=== PATIENT | male | born 1960 | race Caucasian/White ===

== ENCOUNTER 2016-04-28 14:49 | Emergency (ER) | payer OTHER ==
[2016-04-28] MEDS ORDERED: methylPREDNISolone SOD SUCCI 125 MG/2 ML VIAL IV STA (15:12)
[2016-04-28] MEDS ORDERED: RX INFO: IV CONTRAST WAS GIVEN 1 EACH MISC MISCELLANE PRN (15:12)
[2016-04-28] MEDS ORDERED: diphenhydrAMINE 50 MG/ML 1 ML VIAL IVP STA (15:12)
[2016-04-28] MEDS ORDERED: FAMOTIDINE 20 MG/2 ML VIAL IV STA (15:12)
[2016-04-28] MEDS ORDERED: HYDROmorphone 1 MG/ML 1 ML SYRINGE IVP STA ×2 (15:16→16:52)
[2016-04-28] MEDS ORDERED: ONDANSETRON 4 MG/2 ML VIAL IVP STA (15:16)
--- NOTE | 2016-04-28 15:19 | ED ---
General Adult HPI - General Chief complaint: Back Pain/Injury Stated complaint: Chest and Back Pain Time Seen by Provider: 04/28/16 15:00 Source: patient, RN notes reviewed Mode of arrival: wheelchair Limitations: no limitations - History of Present Illness Initial comments: This is a 56-year-old male who presents emergency Department with a past medical history significant for thoracic aortic dissection. Patient states she' s had a repair of his aorta but at another time after his initial repair he had another dissection according to him. Patient states today he comes in the emergency department because he fell when he slipped on the ice and now he complains of back pain and reproducible chest pain. and chest pain. Patient states the pain is been constant since yesterday and he decided finally to come get evaluated. Patient states hurts to breathe when he takes a deep breath but is not short of breath. Patient denies any fever chills per patient denies any lower upper extremity pain. Patient denies any neck pain patient denies any head trauma. Patient denies being lightheaded dizzy or having near syncopal episodes - Related Data Home Medications Medication Instructions Recorded Confirmed Lisinopril [Zestril] 40 mg PO BID 08/12/14 04/28/16 Aspirin/Acetaminophen/Caffeine 1 tab PO DAILY 01/28/16 04/28/16 [Excedrin Extra Strength Caplet] Carvedilol 25 mg PO BID 01/28/16 04/28/16 Ibuprofen [Motrin] 800 mg PO BID PRN 01/28/16 04/28/16 Atorvastatin Calcium [Lipitor] 10 mg PO HS 04/28/16 04/28/16 traMADol HCl [Ultram] 50 mg PO BID PRN 04/28/16 04/28/16 Allergies Allergy/AdvReac Type Severity Reaction Status Date / Time venom-honey bee Allergy Anaphylaxis Verified 04/28/16 16:36 [bee venom (honey bee)] Iodinated Contrast Media - AdvReac Nausea & Verified 04/28/16 16:36 Oral and Vomiting & [Iodinated Contrast Media - Fainting IV Dye] iodine AdvReac NAUSEA, Verified 04/28/16 16:36 VOMITING, & FAINTING Review of Systems ROS Statement: Those systems with pertinent positive or pertinent negative responses have been documented in the HPI. ROS Other: All systems not noted in ROS Statement are negative. Past Medical History Past Medical History: Chest Pain / Angina, Hypertension Additional Past Medical History / Comment(s): chonic back pain, AAA. pt has not worked since 2005 d/t lower back injury. Pt fell 2 stories off a roof in 2005, cause injury to according to him is "entire Aorta". admitted to [facility] 08/12 and 09/08 with complaints of chest pain. History of Any Multi-Drug Resistant Organisms: None Reported Past Surgical History: Appendectomy, Back Surgery, Heart Catheterization, Hernia Repair, Tonsillectomy Additional Past Surgical History / Comment(s): AAA dissection 2005, cath 2012, vasectomy Past Anesthesia/Blood Transfusion Reactions: No Reported Reaction Past Psychological History: Anxiety, Depression Smoking Status: Former smoker Past Alcohol Use History: None Reported Past Drug Use History: Marijuana Additional Drug Use History / Comment(s): medical marijuana card - Past Family History Mother Family Medical History: Diabetes Mellitus Father History Unknown: Yes Family Medical History: No Reported History Sister(s) History Unknown: Yes Family Medical History: No Reported History General Exam - General Exam Comments Initial Comments: GENERAL: Patient is well-developed and well-nourished. Patient is nontoxic and well- hydrated and is in mild distress. ENT: Neck is soft and supple. No significant lymphadenopathy is noted. Oropharynx is clear. Moist mucous membranes. Neck has full range of motion without eliciting any pain. EYES: The sclera were anicteric and conjunctiva were pink and moist. Extraocular movements were intact and pupils were equal round and reactive to light. Eyelids were unremarkable. PULMONARY: Unlabored respirations. Good breath sounds bilaterally. No audible rales rhonchi or wheezing was noted. CARDIOVASCULAR: There is a regular rate and rhythm without any murmurs gallops or rubs. ABDOMEN: Soft and nontender with normal bowel sounds. No palpable organomegaly was noted. There is no palpable pulsatile mass. SKIN: Skin is clear with no lesions or rashes and otherwise unremarkable. NEUROLOGIC: Patient is alert and oriented x3. Cranial nerves II through XII are grossly intact. Motor and sensory are also intact. Normal speech, volume and content. Symmetrical smile. MUSCULOSKELETAL: Normal extremities with adequate strength and full range of motion. No lower extremity swelling or edema. No calf tenderness. Patient has tenderness just medial to the right scapula. LYMPHATICS: No significant lymphadenopathy is noted PSYCHIATRIC: Normal psychiatric evaluation. Normal interpersonal interactions appears functionally intact in deals appropriately with others. No signs of depression. No signs of anxiety. Limitations: no limitations Course Vital Signs 04/28/16 04/28/16 14:55 16:14 Temperature 97.2 F L Pulse Rate 60 52 L Respiratory 16 18 Rate Blood Pressure 138/79 169/81 O2 Sat by Pulse 99 98 Oximetry Medical Decision Making - Medical Decision Making EKG shows sinus bradycardia 58 bpm SC interval is 222 QRS is 88 QT interval 394 QTC is 386. Patient's EKG shows no ST segment elevation or depression there is an inverted T-wave in V6 and flattening in 1 and aVL. Computed tomography scan of the aorta showed no acute findings. There was also no findings of any traumatic injury noted. - Lab Data Result diagrams: 04/28/16 15:10 04/28/16 15:10 Lab Results 04/28/16 04/28/16 04/28/16 Range/Units 15:10 15:10 15:10 WBC 4.6 (3.8-10.6) k/uL RBC 4.86 (4.30-5.90) m/uL Hgb 15.2 (13.0-17.5) gm/dL Hct 44.5 (39.0-53.0) % MCV 91.5 (80.0-100.0) fL MCH 31.2 (25.0-35.0) pg MCHC 34.1 (31.0-37.0) g/dL RDW 13.3 (11.5-15.5) % Plt Count 190 (150-450) k/uL Neutrophils % 41 % Lymphocytes % 46 % Monocytes % 5 % Eosinophils % 5 % Basophils % 1 % Neutrophils # 1.9 (1.3-7.7) k/uL Lymphocytes # 2.1 (1.0-4.8) k/uL Monocytes # 0.2 (0-1.0) k/uL Eosinophils # 0.2 (0-0.7) k/uL Basophils # 0.1 (0-0.2) k/uL PT (9.0-12.0) sec INR (<1.1) APTT (22.0-30.0) sec Sodium 143 (137-145) mmol/L Potassium 3.9 (3.5-5.1) mmol/L Chloride 109 H (98-107) mmol/L Carbon Dioxide 23 (22-30) mmol/L Anion Gap 11 mmol/L BUN 10 (9-20) mg/dL Creatinine 0.80 (0.66-1.25) mg/dL Est GFR (MDRD) Af Amer >60 (>60 ml/min/1.73 sqM) Est GFR (MDRD) Non-Af >60 (>60 ml/min/1.73 sqM) Glucose 109 H (74-99) mg/dL Calcium 9.6 (8.4-10.2) mg/dL Magnesium 2.1 (1.6-2.3) mg/dL Total Bilirubin 1.1 (0.2-1.3) mg/dL AST 17 (17-59) U/L ALT 29 (21-72) U/L Alkaline Phosphatase 46 (38-126) U/L Total Creatine Kinase 125 (55-170) U/L CK-MB (CK-2) 0.6 (0.0-2.4) ng/mL CK-MB (CK-2) Rel Index 0.5 Troponin I 0.015 (0.000-0.034) ng/mL Total Protein 7.3 (6.3-8.2) g/dL Albumin 4.4 (3.5-5.0) g/dL 04/28/16 Range/Units 15:10 WBC (3.8-10.6) k/uL RBC (4.30-5.90) m/uL Hgb (13.0-17.5) gm/dL Hct (39.0-53.0) % MCV (80.0-100.0) fL MCH (25.0-35.0) pg MCHC (31.0-37.0) g/dL RDW (11.5-15.5) % Plt Count (150-450) k/uL Neutrophils % % Lymphocytes % % Monocytes % % Eosinophils % % Basophils % % Neutrophils # (1.3-7.7) k/uL Lymphocytes # (1.0-4.8) k/uL Monocytes # (0-1.0) k/uL Eosinophils # (0-0.7) k/uL Basophils # (0-0.2) k/uL PT 11.1 (9.0-12.0) sec INR 1.1 (<1.1) APTT 24.3 (22.0-30.0) sec Sodium (137-145) mmol/L Potassium (3.5-5.1) mmol/L Chloride (98-107) mmol/L Carbon Dioxide (22-30) mmol/L Anion Gap mmol/L BUN (9-20) mg/dL Creatinine (0.66-1.25) mg/dL Est GFR (MDRD) Af Amer (>60 ml/min/1.73 sqM) Est GFR (MDRD) Non-Af (>60 ml/min/1.73 sqM) Glucose (74-99) mg/dL Calcium (8.4-10.2) mg/dL Magnesium (1.6-2.3) mg/dL Total Bilirubin (0.2-1.3) mg/dL AST (17-59) U/L ALT (21-72) U/L Alkaline Phosphatase (38-126) U/L Total Creatine Kinase (55-170) U/L CK-MB (CK-2) (0.0-2.4) ng/mL CK-MB (CK-2) Rel Index Troponin I (0.000-0.034) ng/mL Total Protein (6.3-8.2) g/dL Albumin (3.5-5.0) g/dL Disposition Clinical Impression: Back contusion Disposition: HOME SELF-CARE Condition: Good Instructions: Back Pain (ED) Time of Disposition: 16:51
[2016-04-28 15:40] LABS: Basophils # (A) 0.1 k/uL (0-0.2); Basophils % (A) 1 %; CHCM 35.1; Eosinophils # (A) 0.2 k/uL (0-0.7); Eosinophils % (A) 5 %; HCT 44.5 % (39.0-53.0); HGB 15.2 gm/dL (13.0-17.5); Luc # (Auto) 0.12; Luc % (Auto) 3; Lymphocytes # (A) 2.1 k/uL (1.0-4.8); Lymphocytes % (A) 46 %; MCH 31.2 pg (25.0-35.0); MCHC 34.1 g/dL (31.0-37.0); MCV 91.5 fL (80.0-100.0); Mean Platelet Volume 7.6; Monocytes # (A) 0.2 k/uL (0-1.0); Monocytes % (A) 5 %; Neutrophils # (A) 1.9 k/uL (1.3-7.7); Neutrophils % (A) 41 %; RBC 4.86 m/uL (4.30-5.90); RDW 13.3 % (11.5-15.5); WBC 4.6 k/uL (3.8-10.6); WBC (Perox) 4.65
[2016-04-28 15:51] LABS: INR 1.1 (<1.1); Partial Thromboplastin Time 24.3 sec (22.0-30.0); Prothrombin Time 11.1 sec (9.0-12.0)
[2016-04-28 15:55] LABS: ALT 29 U/L (21-72); AST 17 U/L (17-59); Alkaline Phosphatase 46 U/L (38-126); Anion Gap 11 mmol/L; Blood Urea Nitrogen 10 mg/dL (9-20); Calcium 9.6 mg/dL (8.4-10.2); Carbon Dioxide 23 mmol/L (22-30); Chloride 109 mmol/L (98-107); Glucose 109 mg/dL (74-99); Magnesium 2.1 mg/dL (1.6-2.3); Non-African American GFR(MDRD) >60 (>60 ml/min/1.73 sqM); Potassium 3.9 mmol/L (3.5-5.1); Sodium 143 mmol/L (137-145); Total Bilirubin 1.1 mg/dL (0.2-1.3); Total Protein 7.3 g/dL (6.3-8.2)
[2016-04-28 16:15] VITALS: RESP 18
[2016-04-28 16:15] LABS: Creatine Kinase MB 0.6 ng/mL (0.0-2.4); Troponin I 0.015 ng/mL (0.000-0.034)
--- NOTE | 2016-04-28 16:17 | XR ---
EXAMINATION TYPE: XR chest 2V DATE OF EXAM: 04/28/2016 4:13 PM COMPARISON: 02/24/2015 INDICATION: Chest pain TECHNIQUE: Single frontal view of the chest is obtained. FINDINGS: The heart size is normal. The pulmonary vasculature is normal. The lungs are clear. Sternotomy wires are present from previous CABG. Surgical clips over the right upper chest. IMPRESSION: 1. No acute pulmonary process.
--- NOTE | 2016-04-28 16:38 | CT ---
EXAMINATION TYPE: CT angio thoracic/abd aorta DATE OF EXAM: 04/28/2016 4:17 PM COMPARISON: 01/28/2016. HISTORY: Pt states of chest pain and back pain after fall injury. HX of AAA. CT DLP: 1447.7 mGycm Automated exposure control for dose reduction was used. CONTRAST: CTA scan of the thorax is performed without and with IV Contrast, patient injected with 100 mL of Omn ipaque 350, aortic dissection protocol. 3-D reconstructed imaging through the entire thoracic abdomin al aorta and the iliac vessels is performed separately by the technologist on the [employer] computer. FINDINGS: LUNGS: The ascending thoracic aorta at the level of the main pulmonary artery measures 2.9 cm. The main pulm onary artery the bifurcation is 2.4 cm. Beginning at the superior lateral ascending aorta at the level of the aortic arch there is a dissecti on with a flap. This extends through the aortic arch and the descending thoracic aorta extending to t he abdominal aorta. The abdominal aorta feeds the superior mesenteric artery celiac axis and right ma in renal artery. The left main renal artery appears to have some retrograde flow from the left common iliac portion of the dissection to the renal artery. There is delayed arterial flow into the right k idney compared to the left. At the level of the estrada of the diaphragm there does not appear to be rajinder w within the left aspect of the dissection. This is what suggests that there is retrograde flow withi n the aorta dissection. The right common iliac artery is no dissection. The dissection appears to ter minate within the mid left common iliac artery. A report was called to the emergency room physician ilya Davidson by telephone 1630 hours. COMPARISON: 01/28/2016. The dissection was present previously. The loss of contrast at the level of t he estrada the diaphragm on the left aspect of the dissection flap may be an interval change. However, t he contrast asymmetry into the left renal artery versus the right is a stable finding. Portion of the thyroid visualized is normal. Axillary regions are unremarkable. No enlarged mediastin al adenopathy is evident. There is a calcification in the posterior right midlung. Series 5 image 29. Some compressive atelectasis within the dependent portions of the lungs bilaterally. Facet degenerative changes are in the lower lumbar spine. No displaced fractures are evident. No pulm onary contusion is evident. Soft tissues appear normal CT ABDOMEN: Liver and spleen appear unremarkable without masses or cysts. The gallbladder is unremark able. Pancreas is normal. Adrenal glands are unremarkable. The asymmetry of contrast within the kidne ys is again noted. No masses cysts or hydronephrosis is evident. Inferior vena cava is unremarkable. There is some minimal fusiform prominence of the distal abdominal aorta with the greatest AP dimensio n of 3.0 cm. Loops of bowel without contrast are unremarkable. Urinary bladder is normal. Prostate ca lcification is present. IMPRESSION: 1. STABLE DISSECTION FROM THE AORTIC ARCH TO THE LEFT COMMON ILIAC ARTERY. THERE IS LIKELY RETROGRADE FLOW WITHIN THE LEFT ASPECT OF THE ANEURYSM FLAP ACCOUNTING FOR THE DELAYED BLOOD AND CONTRAST FLOW INTO THE LEFT KIDNEY. 2. NO ACUTE POSTTRAUMATIC CHANGE IDENTIFIED WITHIN THE REGION OF THE BACK TO ACCOUNT FOR THE PATIENT' S PAIN
[2016-04-28 17:05] VITALS: BP 157/89; PULSE 63; TEMP 97.8
== END 2016-04-28 17:05 | disposition home or self-care (01) ==
LOC: EC 14:49
DX: S20.221A Contusion of right back wall of thorax, initial encounter (principal); I10 Essential (primary) hypertension; Z87.891 Personal history of nicotine dependence; Z79.82 Long term (current) use of aspirin; Z79.899 Other long term (current) drug therapy; Z91.030 Bee allergy status; Z91.041 Radiographic dye allergy status; Z86.79 Personal history of other diseases of the circulatory system; Z95.818 Presence of other cardiac implants and grafts; Z98.890 Other specified postprocedural states; W00.0XXA Fall on same level due to ice and snow, initial encounter
CPT/HCPCS: 36415; 93005; 80053; 82550; 82553; 83735; 84484; 85025; 85610; 85730; 71020; 75635; 71275; 99284; 96374; 96375 ×4; 96376; J1200; J2930; Q9967; J2405; J1170

== ENCOUNTER 2016-12-24 17:45 | Observation (INO) | payer OTHER ==
[2016-12-24] MEDS ORDERED: SODIUM CHLORIDE 0.9% 1,000 ML IV STA (18:01)
[2016-12-24] MEDS ORDERED: ONDANSETRON 4 MG/2 ML VIAL IVP STA (18:01)
[2016-12-24] MEDS ORDERED: SODIUM CHLORIDE 0.9% 500 ML IV STA (18:01)
[2016-12-24] MEDS ORDERED: PANTOPRAZOLE 40 MG/10 ML VIAL IVP STA (18:01)
--- NOTE | 2016-12-24 18:04 | ED ---
General Adult HPI - General Chief complaint: Chest Pain Stated complaint: chest pain Time Seen by Provider: 12/24/16 18:00 Source: patient, RN notes reviewed, old records reviewed Mode of arrival: wheelchair Limitations: no limitations - History of Present Illness Initial comments: This is a 56-year-old male to the ER for evaluation of high blood pressure. Chest pain. Denies shows of breath. Patient states she's been nauseous unable to keep his blood pressure medications and hence has been vomiting severely. No travel history. No fevers. No cough or congestion - Related Data Home Medications Medication Instructions Recorded Confirmed Lisinopril [Zestril] 40 mg PO BID 08/12/14 12/24/16 Aspirin/Acetaminophen/Caffeine 1 tab PO DAILY 01/28/16 12/24/16 [Excedrin Extra Strength Caplet] Carvedilol 25 mg PO BID 01/28/16 12/24/16 Ibuprofen [Motrin] 800 mg PO BID PRN 01/28/16 12/24/16 Atorvastatin Calcium [Lipitor] 10 mg PO HS 04/28/16 12/24/16 Gabapentin [Neurontin] 300 mg PO TID 12/24/16 12/24/16 oxyCODONE-APAP 10-325MG [Percocet 1 tab PO Q6HR PRN 12/24/16 12/24/16 10-325 mg] Allergies Allergy/AdvReac Type Severity Reaction Status Date / Time venom-honey bee Allergy Anaphylaxis Verified 12/24/16 19:20 [bee venom (honey bee)] Iodinated Contrast- Oral and AdvReac Nausea & Verified 12/24/16 19:20 IV Dye Vomiting & [Iodinated Contrast Media - Fainting IV Dye] iodine AdvReac NAUSEA, Verified 12/24/16 19:20 VOMITING, & FAINTING shellfish derived [Shellfish] AdvReac Rash/Hives Verified 12/24/16 21:21 Review of Systems ROS Statement: Those systems with pertinent positive or pertinent negative responses have been documented in the HPI. ROS Other: All systems not noted in ROS Statement are negative. Past Medical History Past Medical History: Chest Pain / Angina, Hypertension Additional Past Medical History / Comment(s): chonic back pain, AAA. pt has not worked since 2005 d/t lower back injury. Pt fell 2 stories off a roof in 2005, cause injury to according to him is "entire Aorta". admitted to [facility] 08/12 and 09/08 with complaints of chest pain. History of Any Multi-Drug Resistant Organisms: None Reported Past Surgical History: Appendectomy, Back Surgery, Heart Catheterization, Hernia Repair, Tonsillectomy Additional Past Surgical History / Comment(s): AAA dissection 2005, cath 2012, vasectomy Past Anesthesia/Blood Transfusion Reactions: No Reported Reaction Past Psychological History: Anxiety, Depression Smoking Status: Current every day smoker Past Alcohol Use History: None Reported Past Drug Use History: Marijuana - Past Family History Mother Family Medical History: Diabetes Mellitus Father History Unknown: Yes Family Medical History: No Reported History Sister(s) History Unknown: Yes Family Medical History: No Reported History General Exam Limitations: no limitations General appearance: alert, in no apparent distress Head exam: Present: atraumatic, normocephalic, normal inspection Eye exam: Present: normal appearance, PERRL, EOMI. Absent: scleral icterus, conjunctival injection, periorbital swelling ENT exam: Present: normal exam, mucous membranes moist Neck exam: Present: normal inspection. Absent: tenderness, meningismus, lymphadenopathy Respiratory exam: Present: normal lung sounds bilaterally. Absent: respiratory distress, wheezes, rales, rhonchi, stridor Cardiovascular Exam: Present: regular rate, normal rhythm, normal heart sounds. Absent: systolic murmur, diastolic murmur, rubs, gallop, clicks GI/Abdominal exam: Present: soft, normal bowel sounds. Absent: distended, tenderness, guarding, rebound, rigid Extremities exam: Present: normal inspection, full ROM, normal capillary refill. Absent: tenderness, pedal edema, joint swelling, calf tenderness Back exam: Present: normal inspection Neurological exam: Present: alert, oriented X3, CN II-XII intact Psychiatric exam: Present: normal affect, normal mood Skin exam: Present: warm, dry, intact, normal color. Absent: rash Course Vital Signs 12/24/16 12/24/16 12/24/16 17:52 19:27 19:40 Temperature 97.8 F Pulse Rate 65 82 53 L Respiratory 18 16 20 Rate Blood Pressure 182/98 182/95 175/92 O2 Sat by Pulse 99 98 96 Oximetry 12/24/16 20:59 Temperature Pulse Rate 51 L Respiratory 16 Rate Blood Pressure 176/86 O2 Sat by Pulse 94 L Oximetry - Reevaluation(s) Reevaluation #1: Patient remained the chest pain despite pain control here in the emergency room EKG Findings - EKG Comments: EKG Findings:: EKG shows sinus rhythm rate of 60, pO2 14, QRS 86, QTC 406 Medical Decision Making - Medical Decision Making 56 male the ER for evaluation. Patient has positive chest pain. Patient still chest at this time, patient be admitted for cardiac observation - Lab Data Result diagrams: 12/24/16 18:15 12/24/16 18:15 Lab Results 12/24/16 12/24/16 12/24/16 Range/Units 18:15 18:15 18:15 WBC 6.0 (3.8-10.6) k/uL RBC 5.28 (4.30-5.90) m/uL Hgb 16.2 (13.0-17.5) gm/dL Hct 46.7 (39.0-53.0) % MCV 88.5 (80.0-100.0) fL MCH 30.7 (25.0-35.0) pg MCHC 34.6 (31.0-37.0) g/dL RDW 14.2 (11.5-15.5) % Plt Count 195 (150-450) k/uL Neutrophils % 56 % Lymphocytes % 33 % Monocytes % 5 % Eosinophils % 3 % Basophils % 1 % Neutrophils # 3.3 (1.3-7.7) k/uL Lymphocytes # 2.0 (1.0-4.8) k/uL Monocytes # 0.3 (0-1.0) k/uL Eosinophils # 0.2 (0-0.7) k/uL Basophils # 0.1 (0-0.2) k/uL PT (9.0-12.0) sec INR (<1.2) APTT (22.0-30.0) sec Sodium 140 (137-145) mmol/L Potassium 3.7 (3.5-5.1) mmol/L Chloride 109 H (98-107) mmol/L Carbon Dioxide 22 (22-30) mmol/L Anion Gap 9 mmol/L BUN 12 (9-20) mg/dL Creatinine 0.80 (0.66-1.25) mg/dL Est GFR (MDRD) Af Amer >60 (>60 ml/min/1.73 sqM) Est GFR (MDRD) Non-Af >60 (>60 ml/min/1.73 sqM) Glucose 112 H (74-99) mg/dL Calcium 9.7 (8.4-10.2) mg/dL Magnesium 1.9 (1.6-2.3) mg/dL Total Bilirubin 0.7 (0.2-1.3) mg/dL AST 12 L (17-59) U/L ALT 27 (21-72) U/L Alkaline Phosphatase 58 (38-126) U/L Total Creatine Kinase 85 (55-170) U/L CK-MB (CK-2) 0.4 (0.0-2.4) ng/mL CK-MB (CK-2) Rel Index 0.5 Troponin I <0.012 (0.000-0.034) ng/mL Total Protein 7.0 (6.3-8.2) g/dL Albumin 4.4 (3.5-5.0) g/dL Lipase 96 (23-300) U/L 12/24/16 Range/Units 18:15 WBC (3.8-10.6) k/uL RBC (4.30-5.90) m/uL Hgb (13.0-17.5) gm/dL Hct (39.0-53.0) % MCV (80.0-100.0) fL MCH (25.0-35.0) pg MCHC (31.0-37.0) g/dL RDW (11.5-15.5) % Plt Count (150-450) k/uL Neutrophils % % Lymphocytes % % Monocytes % % Eosinophils % % Basophils % % Neutrophils # (1.3-7.7) k/uL Lymphocytes # (1.0-4.8) k/uL Monocytes # (0-1.0) k/uL Eosinophils # (0-0.7) k/uL Basophils # (0-0.2) k/uL PT 11.3 (9.0-12.0) sec INR 1.1 (<1.2) APTT 24.6 (22.0-30.0) sec Sodium (137-145) mmol/L Potassium (3.5-5.1) mmol/L Chloride (98-107) mmol/L Carbon Dioxide (22-30) mmol/L Anion Gap mmol/L BUN (9-20) mg/dL Creatinine (0.66-1.25) mg/dL Est GFR (MDRD) Af Amer (>60 ml/min/1.73 sqM) Est GFR (MDRD) Non-Af (>60 ml/min/1.73 sqM) Glucose (74-99) mg/dL Calcium (8.4-10.2) mg/dL Magnesium (1.6-2.3) mg/dL Total Bilirubin (0.2-1.3) mg/dL AST (17-59) U/L ALT (21-72) U/L Alkaline Phosphatase (38-126) U/L Total Creatine Kinase (55-170) U/L CK-MB (CK-2) (0.0-2.4) ng/mL CK-MB (CK-2) Rel Index Troponin I (0.000-0.034) ng/mL Total Protein (6.3-8.2) g/dL Albumin (3.5-5.0) g/dL Lipase (23-300) U/L - Radiology Data Radiology results: report reviewed (Chest x-rays negative for acute disease), image reviewed Disposition Clinical Impression: Chest pain Disposition: ADMITTED IP TO THIS [facility] Condition: Undetermined
[2016-12-24 18:25] LABS: Basophils # (A) 0.1 k/uL (0-0.2); Basophils % (A) 1 %; Eosinophils # (A) 0.2 k/uL (0-0.7); Eosinophils % (A) 3 %; HCT 46.7 % (39.0-53.0); HGB 16.2 gm/dL (13.0-17.5); Lymphocytes % (A) 33 %; MCH 30.7 pg (25.0-35.0); MCHC 34.6 g/dL (31.0-37.0); MCV 88.5 fL (80.0-100.0); Mean Platelet Volume 7.1; Monocytes # (A) 0.3 k/uL (0-1.0); Monocytes % (A) 5 %; Neutrophils # (A) 3.3 k/uL (1.3-7.7); Neutrophils % (A) 56 %; Platelet Count 195 k/uL (150-450); RBC 5.28 m/uL (4.30-5.90); RDW 14.2 % (11.5-15.5)
[2016-12-24 18:42] LABS: INR 1.1 (<1.2); Partial Thromboplastin Time 24.6 sec (22.0-30.0); Prothrombin Time 11.3 sec (9.0-12.0)
[2016-12-24 18:43] LABS: ALT 27 U/L (21-72); AST 12 U/L (17-59); Albumin 4.4 g/dL (3.5-5.0); Alkaline Phosphatase 58 U/L (38-126); Anion Gap 9 mmol/L; Blood Urea Nitrogen 12 mg/dL (9-20); Calcium 9.7 mg/dL (8.4-10.2); Carbon Dioxide 22 mmol/L (22-30); Chloride 109 mmol/L (98-107); Glucose 112 mg/dL (74-99); Lipase 96 U/L (23-300); Magnesium 1.9 mg/dL (1.6-2.3); Potassium 3.7 mmol/L (3.5-5.1); Sodium 140 mmol/L (137-145); Total Bilirubin 0.7 mg/dL (0.2-1.3)
[2016-12-24 18:45] LABS: Creatine Kinase 85 U/L (55-170)
[2016-12-24 18:59] LABS: Creatine Kinase MB 0.4 ng/mL (0.0-2.4); Troponin I <0.012 ng/mL (0.000-0.034)
[2016-12-24] MEDS ORDERED: MORPHINE SULFATE 10 MG/ML SYRINGE IVP STA ×2 (19:00→20:35)
[2016-12-24] MEDS ORDERED: LABETALOL 5 MG/ML VIAL MDV IVP STA (19:00)
--- NOTE | 2016-12-24 19:00 | XR ---
EXAMINATION TYPE: XR chest 2V DATE OF EXAM: 12/24/2016 COMPARISON: 04/28/2016 HISTORY: Chest pain TECHNIQUE: Frontal and lateral views of the chest are obtained. FINDINGS: There is no heart failure nor confluent pneumonic infiltrate. There are surgical clips at the right upper lobe region. There are sternal wires. There are chest leads. Costophrenic angles are clear. IMPRESSION: No active cardiopulmonary disease. Normal heart. No change.
[2016-12-24] MEDS ORDERED: HEPARIN SODIUM,PORCINE 5,000 UNIT/ML 1 ML VIAL IV PRN (20:28)
[2016-12-24] MEDS ORDERED: HEPARIN SODIUM,PORCINE 5,000 UNIT/ML 1 ML VIAL IV ONE (20:28)
[2016-12-24] MEDS ORDERED: NITROGLYCERIN SL TABS 0.4 MG TAB SUBLINGUAL PRN (20:28)
[2016-12-24] MEDS ORDERED: ASPIRIN 81 MG PO STA (20:28)
[2016-12-24] MEDS ORDERED: HEPARIN SODIUM,PORCINE/D5W PMX 25,000 UNIT in DEXTROSE/WATER 1 500ML.BAG IV SCH (20:30)
[2016-12-24 21:36] VITALS: BMI 26.4
[2016-12-25] MEDS: MORPHINE SULFATE 10 MG/ML SYRINGE IVP PRN ×3 (01:00→11:17)
[2016-12-25] MEDS: ONDANSETRON 4 MG/2 ML VIAL IVP PRN ×4 (01:34→22:27)
[2016-12-25 02:12] LABS: Creatine Kinase 127 U/L (55-170)
[2016-12-25 02:25] LABS: Creatine Kinase MB 0.6 ng/mL (0.0-2.4); Troponin I <0.012 ng/mL (0.000-0.034)
[2016-12-25] MEDS: IBUPROFEN 800 MG TAB PO PRN (05:59)
[2016-12-25] MEDS: CARVEDILOL 12.5 MG TAB PO SCH ×2 (06:57→20:42)
[2016-12-25] MEDS: LISINOPRIL 20 MG TAB PO SCH ×2 (06:57→20:42)
[2016-12-25 07:25] LABS: Mean Platelet Volume 7.1; Platelet Count 173 k/uL (150-450)
[2016-12-25 07:35] LABS: Cholesterol 167 mg/dL (<200); HDL Cholesterol 27 mg/dL (40-60); LDL Cholesterol,Calculated 110 mg/dL (0-99); Triglycerides 148 mg/dL (<150)
[2016-12-25 07:51] LABS: Creatine Kinase 75 U/L (55-170)
[2016-12-25 08:05] LABS: Creatine Kinase MB 0.5 ng/mL (0.0-2.4); Troponin I <0.012 ng/mL (0.000-0.034)
[2016-12-25] MEDS: oxyCODONE-APAP 10-325MG 1 EACH TAB PO PRN ×3 (08:18→20:41)
[2016-12-25] MEDS: GABAPENTIN 300 MG CAP PO SCH ×3 (08:57→20:43)
[2016-12-25] MEDS: ASPIRIN 81 MG PO SCH (08:57)
[2016-12-25] MEDS ORDERED: ASPIRIN 325 MG TAB PO SCH (09:00)
--- NOTE | 2016-12-25 09:03 | CONS ---
CONSULTATION This is a 56-year-old gentleman with a known history of previous accident and dissection of the aorta, which was apparently a type 1 dissection and he had surgery for that and this was performed in 2005 in [place]. Since then, he is known to have a dissection that extends almost into the iliac arteries, but the dissection has been stable and he has been generally doing well. He was hospitalized here before and his last CTA was performed in April of this year. The CTA at that time revealed a stable dissection from aortic arch to the left common iliac artery and this was actually compared with a previous study of January 2016. This gentleman comes here not with any significant chest pain, but mostly with complaints of feeling nauseated. His arrival to the hospital was precipitated by not taking medications for 3 days and he came in with nausea and has not taken his medications. He was found to have elevated blood pressure. He usually takes 25 mg b.i.d. of carvedilol and lisinopril, but because of nausea, vomiting. He did not take any of his medicines. His nausea has resolved. He feels comfortable. He does not have any chest discomfort. His blood pressure has improved substantially since he arrived. He is alert, oriented. Denies chest pain. His pulses are equal in both upper and lower extremities. He is resting comfortably without symptoms at the time of my evaluation. The chest x-ray does not reveal any significant abnormality and the troponin levels are also normal. On questioning, the patient, he came in mainly because of not taking medications and high blood pressure, and then complained of some sharp discomfort in the chest. He is asymptomatic. Nausea has improved. He wishes to eat and his blood pressure has improved. PAST MEDICAL HISTORY: 1. Accident in 2015 followed by dissection of the ascending aorta requiring surgery. 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 2. Hypertension. 3. Hypercholesterolemia. 4. Status post back surgery and hernia repair and tonsillectomy. MEDICATIONS: At home include lisinopril 40 mg b.i.d., aspirin 81 mg daily, carvedilol 25 mg b.i.d., Atorvastatin 10 mg daily, gabapentin. ALLERGIES: ALLERGIC TO IODINE DYE. 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 HEENT: Unremarkable. Fundus was not examined by me. Neck is supple. There is no JVD. I do not hear a carotid bruit. Heart exam reveals S1, S2 with a short systolic murmur that appears to be quite stable. Lungs are clear. Abdomen is soft, nontender. Lower extremities reveal palpable equal pulses. Upper extremity pulses are also equal. Central nervous system is grossly within normal limits. He. IMPRESSION: 1. Uncontrolled hypertension because of not taking his medications secondary to nausea. 2. History of aortic dissection and surgery with a chronic dissection that extends from the arch from ascending aorta to the left iliac artery. 3. Hypertension. 4. Hypercholesterolemia. 5. No evidence to suggest any coronary artery disease. RECOMMENDATION: I am recommending that we optimize BP control by giving him both his lisinopril and carvedilol this morning. I am recommending an echocardiogram. His troponin levels have been normal and his nausea has improved. I do not believe any additional workup from her coronary disease standpoint is warranted at this time. I will discontinue his IV heparin and if he has no further symptoms, he can be discharged and is advised to follow up with his primary care physician and Dr. Harris as an outpatient. We will increase activity and perform an echocardiogram today. I discussed my thoughts in detail with the patient. Thank you very much for the consult. MMODL / IJN: [id number] /
--- NOTE | 2016-12-25 12:15 | ECHOF ---
Referral Reason:hx of Aortic Dissection and repair MEASUREMENTS -------- HEIGHT: 182.9 cm WEIGHT: 88.5 kg BP: 161/91 RVIDd: 2.7 cm (< 3.3) IVSd: 1.5 cm (0.6 - 1.1) LVIDd: 4.7 cm (3.9 - 5.3) LVPWd: 1.4 cm (0.6 - 1.1) IVSs: 2.0 cm LVIDs: 3.1 cm LVPWs: 1.6 cm LA Diam: 4.7 cm (2.7 - 3.8) LAESV Index (A-L): 54.67 ml/m Ao Diam: 4.0 cm (2.0 - 3.7) AV Cusp: 1.8 cm (1.5 - 2.6) LA Diam: 4.6 cm (2.7 - 3.8) EPSS: 0.2 cm MV E Tahir: 0.70 m/s MV DecT: 166 ms MV A Tahir: 0.77 m/s MV E/A Ratio: 0.91 RAP: 5.00 mmHg RVSP: 31.73 mmHg MV EF SLOPE: 86.02 mm/s (70 - 150) MV EXCURSION: 1.64 cm (> 18.000) FINDINGS -------- Sinus rhythm. This was a technically adequate study. There is moderate concentric left ventricular hypertrophy. Overall left ventricular systolic functi on is low-normal with, an EF between 50 - 55 %. The right ventricle is normal in size. LA is severely dilated >40 ml/m2 The right atrial size is normal. The aortic valve is trileaflet, and appears structurally normal. No aortic stenosis or regurgitation. Mild mitral regurgitation is present. Mild tricuspid regurgitation present. There is no evidence of pulmonary hypertension. Trace/mild (physiologic) pulmonic regurgitation. Pt had [facility]ortic [facility]section [facility] Repair 2005. Aortic Root measuresd 4.0 cm. There is no pericardial effusion. CONCLUSIONS -------- 1. There is moderate concentric left ventricular hypertrophy. 2. Overall left ventricular systolic function is low-normal with, an EF between 50 - 55 %. 3. LA is severely dilated >40 ml/m2 4. The aortic valve is trileaflet, and appears structurally normal. No aortic stenosis or regurgitati on. 5. Mild mitral regurgitation is present. 6. Mild tricuspid regurgitation present. 7. There is no evidence of pulmonary hypertension. 8. Trace/mild (physiologic) pulmonic regurgitation. 9. Pt had [facility] Aortic Dissection & Repair 2005. 10. Aortic Root measuresd 4.0 cm. 11. There is no pericardial effusion CREATIVE CONSULTANT: Rosemary Chen RDCS
[2016-12-25] MEDS: LORATADINE-PSEUDOEPH 5-120 MG 1 EACH TAB.ER.12H PO SCH ×2 (13:08→20:42)
[2016-12-25] MEDS: methylPREDNISolone SOD SUCCI 40 MG/ML 1 ML VIAL IV SCH ×3 (13:08→23:32)
[2016-12-25] MEDS: FAMOTIDINE 20 MG TAB PO SCH ×2 (13:09→20:43)
--- NOTE | 2016-12-25 13:16 | HP ---
HISTORY AND PHYSICAL DATE OF ADMISSION: 12/24/2016 DATE OF SERVICE: 12/25/2016 PRESENT COMPLAINT: Not feeling well. HISTORY OF PRESENTING COMPLAINT: This is a 56-year-old patient Dr. Love. Chronic stable medical conditions include hypertension, back pain, abdominal aortic aneurysm with chronic dissection, anxiety, depression. Patient presented with multitude of symptoms. Started vomiting about 3 days ago, not able to keep his meds down. Also has epigastric pain. Had one loose stool. Patient has had sinus troubles for a long time and having headache in the same area. Feels congested. Denies any fever. This morning actually did eat some eggs. Just feeling tired and run down. REVIEW OF SYSTEMS: CONSTITUTIONAL: Weak, tired. HEENT: Frontal headache, nasal stuffiness. RESPIRATORY: Wheezing, cough, brown sputum. CARDIOVASCULAR: No chest pain. GASTROINTESTINAL: As above. GENITOURINARY: None. MUSCULOSKELETAL: Chronic low back pain. DERMATOLOGICAL: None. HEMATOLOGICAL: None. LYMPHATIC: None. PSYCHIATRY: Anxiety, depression. NEUROLOGICAL: None. PAST MEDICAL HISTORY: Hypertension, chronic low back pain, abdominal aortic aneurysm with chronic dissection. Patient took a fall from 2 stories from a roof in 2005, chronic sinusitis, anxiety, depression. PAST SURGICAL HISTORY: Appendectomy, back surgery, cardiac catheterization, hernia repair, tonsillectomy, cardiac cath in 2012, vasectomy, AAA dissection in 2005. PAST PSYCH HISTORY: Anxiety, depression. SOCIAL HISTORY: Patient smokes. Smokes about a pack a day and has medical marijuana. Lives with friends. Alcohol, none. FAMILY HISTORY: Diabetes. HOME MEDICATIONS: 1. Neurontin 300 mg p.o. t.i.d. 2. Zestril 40 mg p.o. b.i.d. 3. Motrin 800 mg p.o. b.i.d. p.r.n. 4. Coreg 25 p.o. b.i.d. 5. Lipitor 10 mg p.o. q.h.s. 6. Excedrin 1 tablet p.o. daily. 7. Percocet 10 one tablet q.6 p.r.n. ALLERGIES: BEE VENOM, IV CONTRAST DYE, IODINE, SHELLFISH. PHYSICAL EXAMINATION: Vital signs on presentation, temperature 97.8, pulse 55, respiratory 18, blood pressure 182/98, pulse ox 99% on room air. GENERAL APPEARANCE: Average build, lying in bed, somewhat uncomfortable. EYES: Pupils equal, conjunctivae normal. HEENT: Oral cavity normal. NECK: JVD not raised. Mass not palpable. RESPIRATORY: Effort increased. LUNGS: Diminished breath sounds, prolonged expiration, wheezing, some scattered crackles. CARDIOVASCULAR: First and second sounds normal. No edema. ABDOMEN: Soft, nontender. Liver and spleen not palpable. LYMPHATIC: No lymph palpable in neck or axillae. PSYCHIATRY: Alert and oriented x3. Mood and affect slightly anxious-appearing. NEUROLOGICAL: Pupils equal. Cranial nerves grossly intact. Power and sensation grossly intact. HEENT: Some tenderness over the frontal sinuses. INVESTIGATIONS: White count 6, hemoglobin 6.2, potassium 3.7. BUN and creatinine are normal. Chest x- ray reviewed by me. No active infiltrate. EKG nonspecific. ASSESSMENT: 1. Acute chronic obstructive pulmonary disease exacerbation with acute bronchitis and acute sinusitis in a patient who is a current smoker. 2. Chronic nicotine dependence, patient has chronic nicotine dependence. 3. Essential hypertension with urgency. Patient not able to take his medications with nausea and vomiting for 3 days. 4. Possible acute gastritis causing nausea, vomiting. Patient's abdominal examination rather benign and nonsurgical at all and patient started to feel a bit better. 5. Chronic low back pain from prior injury. 6. AAA with chronic aortic dissection. 7. Anxiety, depression, not otherwise specified by. 8. Hypertensive heart disease. PLAN: Patient was advised against smoking. Started on nebulized bronchodilators, steroids, inhaled steroids. Will get sinus x-rays, clear the chronicity. Will start the patient on IV ceftriaxone. Patient did have a 2-D echocardiogram that showed moderate concentric left ventricular hypertrophy. EF of 50% to 55%. Patient is given a nicotine patch. Patient early this morning seen by consumer studies professor, Dr. Rai Luz. Patient's blood pressure is better controlled now by 150/88 after getting his medications down. IV heparin was discontinued. Care was discussed with the patient. MMODL / IJN: [id number] /
[2016-12-25] MEDS: NICOTINE 21MG/24HR PATCH TRANSDERM SCH (14:26)
--- NOTE | 2016-12-25 15:11 | XR ---
Sinus series HISTORY: Sinusitis, sinus congestion 5 views of the sinuses No comparisons No air-fluid levels present. No significant mucoperiosteal thickening evident. Bone mineralization is maintained. Orbits are intact. IMPRESSION: Correlate for point tenderness to assess for sinusitis.
[2016-12-25] MEDS ORDERED: IPRATROPIUM-ALBUTEROL 3 ML NEB INHALATION SCH (16:00)
[2016-12-25] MEDS: BUDESONIDE 1 MG/2 ML NEBU INHALATION SCH ×2 (16:18→20:01)
[2016-12-25] MEDS ORDERED: IPRATROPIUM-ALBUTEROL 3 ML NEB INHALATION PRN (19:06)
[2016-12-25] MEDS: IPRATROPIUM-ALBUTEROL 3 ML NEB INHALATION SCH (20:00)
[2016-12-25] MEDS: ATORVASTATIN 10 MG TAB PO SCH (20:43)
[2016-12-25] MEDS: ZOLPIDEM 5 MG TAB PO PRN (23:31)
[2016-12-26] MEDS: oxyCODONE-APAP 10-325MG 1 EACH TAB PO PRN ×4 (02:08→20:08)
[2016-12-26] MEDS: ONDANSETRON 4 MG/2 ML VIAL IVP PRN ×4 (04:43→22:29)
[2016-12-26] MEDS: IBUPROFEN 800 MG TAB PO PRN (04:43)
[2016-12-26] MEDS: FAMOTIDINE 20 MG TAB PO SCH ×2 (08:07→20:09)
[2016-12-26] MEDS: GABAPENTIN 300 MG CAP PO SCH ×3 (08:21→20:09)
[2016-12-26] MEDS: ASPIRIN 81 MG PO SCH (08:21)
[2016-12-26] MEDS: methylPREDNISolone SOD SUCCI 40 MG/ML 1 ML VIAL IV SCH ×2 (08:21→16:41)
[2016-12-26] MEDS: LORATADINE-PSEUDOEPH 5-120 MG 1 EACH TAB.ER.12H PO SCH ×2 (08:21→20:08)
[2016-12-26] MEDS: ENOXAPARIN 40 MG/0.4 ML SYRINGE SQ SCH (08:21)
[2016-12-26] MEDS: CARVEDILOL 12.5 MG TAB PO SCH ×2 (08:21→20:09)
[2016-12-26] MEDS: LISINOPRIL 20 MG TAB PO SCH ×2 (08:21→20:09)
[2016-12-26] MEDS: NICOTINE 21MG/24HR PATCH TRANSDERM SCH (08:24)
[2016-12-26] MEDS: BUDESONIDE 1 MG/2 ML NEBU INHALATION SCH ×2 (08:47→18:59)
[2016-12-26] MEDS: IPRATROPIUM-ALBUTEROL 3 ML NEB INHALATION SCH ×4 (08:48→18:59)
--- NOTE | 2016-12-26 17:33 | P.PN ---
Progress Note - Text Progress Note Date: 12/26/16 DATE OF SERVICE: 12/26/2016 PRESENTING COMPLAINT: Not feeling well HISTORY OF PRESENT ILLNESS: 56-year-old male presented with vomiting for 3 days, epigastric pain and loose stool 1. Unable to keep any medications or food down and also complains of sinus trouble with headaches feeling congested denies any fevers, patient was admitted for acute chronic obstructive pulmonate disease exacerbation with acute bronchitis and acute sinusitis. INTERVAL HISTORY: 12/26/2016: Patient seen in follow-up today, complaining to the nurse regarding abdominal pain and nausea unable to keep down breakfast and threw up his legs. On exam patient is found eating a very heavy lunch. Diet returned to full liquid diet. Does continue to complain of epigastric and right upper quadrant pain. Continues to complain of sinus troubles and coughing. States upper respiratory symptoms have improved some. REVIEW OF SYSTEMS: Done for constitutional ,cardiovascular, GI, pulmonary with relevant findings as above. CURRENT MEDICATIONS DuoNeb, aspirin, Lipitor, Pulmicort, Coreg 25 mg by mouth twice a day Lovenox 40 mg subcu daily, Pepcid 20 mg by mouth twice a day, Neurontin 300 mg by mouth 3 times a day, Motrin 800 mg by mouth twice a day when necessary, Zestril 40 mg by mouth twice a day, Claritin-D 12 hour one tablet every 12 hours, Solu-Medrol 40 mg IV every 8 hours, nicotine patch, Zofran 4 mg IV push every 6 hours, Percocet 10-325 mg one tablet every 6 hours. PHYSICAL EXAM VITAL SIGNS: Temperature 97.3, pulse 63, respiratory rate 18, blood pressure 131/72, oxygen saturation 96% on room air. GENERAL APPEARANCE: Sitting up on the edge of the bed not in distress. EYES: Pupils equal. Conjunctiva normal. NECK: JVD not raised. Mass not palpable. RESPIRATORY: Respiratory effort normal. Lungs clear to auscultation. CARDIOVASCULAR: First and second sounds normal. No edema. ABDOMEN: Soft. Liver and spleen not palpable. Mild epigastric and right upper quadrant tenderness No mass palpable. PSYCHIATRY: Alert and oriented x3. Mood and affect normal. INVESTIGATIONS: No new labs ASSESSMENT: -Acute chronic obstructive pulmonary disease exacerbation with acute bronchitis in a patient who is a current smoker improving -Possible acute gastritis in a patient who has been on NSAIDS slow improvment -Chronic nicotine dependence, patient has chronic nicotine dependence -Essential hypertension with urgency, improving, patient has received his medications -Possible acute gastritis causing nausea vomiting, worsening -Chronic low back pain from prior injury -AAA with chronic aortic dissection -Anxiety depression not otherwise specified -Hypertensive heart disease. PLAN: Diet changed to full liquid diet in light of patient's recent nausea and vomiting, Zofran provided for nausea we'll give his stomach a chance to settled down see how he feels in the morning. Continue with nebulized bronchodilators steroids and inhaled steroids. And IV antibiotics Plan of care discussed with patient at bedside he is in agreement. We will follow closely. [employer] OPERATOR statement: Patient was seen and examined by nurse practitioner Radha Schroeder and all elements of the case discussed with attending Dr. Ball
[2016-12-26] MEDS: ATORVASTATIN 10 MG TAB PO SCH (20:09)
[2016-12-26] MEDS: PANTOPRAZOLE 40 MG TABLET PO SCH (22:29)
[2016-12-26] MEDS: ZOLPIDEM 5 MG TAB PO PRN (22:29)
--- NOTE | 2016-12-26 23:02 | PN ---
PROGRESS NOTE DATE OF SERVICE: 12/26/16 ATTENDING NOTE: This patient seen examined by me. I discussed with nurse practitioner, Ms. Schroeder. Patient admitted with COPD exacerbation, some nausea, vomiting. Sinus x-rays have come back negative. The patient overall looks much better. Did throw up this morning just once. Breathing is improved. PHYSICAL EXAMINATION: On examination afebrile, pulse 88, respiration 18, blood pressure 131/32. LUNGS: Decreased wheezing. Cardiovascular first and second sounds normal. Patient overall looks a bit better. INVESTIGATIONS: Troponins were negative, LDL 110. ASSESSMENT: 1. Acute chronic obstructive pulmonary disease exacerbation with acute bronchitis in a patient who is a current smoker with clinical improvement. 2. Possible acute gastritis in a patient who has been on NSAIDs, slow improvement. PLAN: Will change the diet to full liquid diet. Cut back on steroids. DC the Motrin. Change the Pepcid to Protonix. See how the patient fares. Overall, patient is otherwise looking better. MMODL / IJN: [id number] /
[2016-12-27] MEDS: oxyCODONE-APAP 10-325MG 1 EACH TAB PO PRN ×2 (05:51→11:59)
[2016-12-27] MEDS: ONDANSETRON 4 MG/2 ML VIAL IVP PRN (05:52)
[2016-12-27 06:07] VITALS: RESP 18
[2016-12-27 08:04] LABS: Basophils % (A) 0 %; Eosinophils % (A) 0 %; HGB 14.1 gm/dL (13.0-17.5); Lymphocytes # (A) 1.1 k/uL (1.0-4.8); Lymphocytes % (A) 6 %; MCH 30.4 pg (25.0-35.0); MCHC 33.5 g/dL (31.0-37.0); MCV 90.8 fL (80.0-100.0); Mean Platelet Volume 7.8; Monocytes # (A) 0.7 k/uL (0-1.0); Monocytes % (A) 4 %; Neutrophils # (A) 16.9 k/uL (1.3-7.7); Neutrophils % (A) 90 %; Platelet Count 179 k/uL (150-450); RBC 4.63 m/uL (4.30-5.90); RDW 13.9 % (11.5-15.5); WBC 18.8 k/uL (3.8-10.6)
[2016-12-27] MEDS: BUDESONIDE 1 MG/2 ML NEBU INHALATION SCH (08:11)
[2016-12-27] MEDS: IPRATROPIUM-ALBUTEROL 3 ML NEB INHALATION SCH ×3 (08:11→15:29)
[2016-12-27 08:17] LABS: Anion Gap 8 mmol/L; Blood Urea Nitrogen 15 mg/dL (9-20); Carbon Dioxide 26 mmol/L (22-30); Chloride 107 mmol/L (98-107); Glucose 117 mg/dL (74-99); Sodium 141 mmol/L (137-145)
[2016-12-27] MEDS: LORATADINE-PSEUDOEPH 5-120 MG 1 EACH TAB.ER.12H PO SCH (08:28)
[2016-12-27] MEDS: PANTOPRAZOLE 40 MG TABLET PO SCH (08:28)
[2016-12-27] MEDS: ENOXAPARIN 40 MG/0.4 ML SYRINGE SQ SCH (08:28)
[2016-12-27] MEDS: LISINOPRIL 20 MG TAB PO SCH (08:28)
[2016-12-27] MEDS: CARVEDILOL 12.5 MG TAB PO SCH (08:28)
[2016-12-27] MEDS: GABAPENTIN 300 MG CAP PO SCH ×2 (08:28→15:57)
[2016-12-27] MEDS: NICOTINE 21MG/24HR PATCH TRANSDERM SCH (08:29)
[2016-12-27] MEDS: ASPIRIN 81 MG PO SCH (08:29)
[2016-12-27] MEDS ORDERED: predniSONE 20 MG TAB PO SCH (09:00)
[2016-12-27 15:04] VITALS: BP 152/92; TEMP 98
[2016-12-27 15:40] VITALS: PULSE 72
--- NOTE | 2016-12-27 20:56 | DS ---
DISCHARGE SUMMARY DATE OF ADMISSION: 12/24/16. DATE OF DISCHARGE: 12/27/16. FINAL DIAGNOSES: 1. Acute chronic obstructive pulmonary disease exacerbation with acute bronchitis. 2. Chronic nicotine dependence in a patient who is a chronic nicotine smoker. 3. Essential hypertension with urgency. 4. Acute gastritis. The patient takes NSAIDs. 5. Chronic low back pain from prior surgery. 6. Abdominal aortic aneurysm with chronic aortic dissection. 7. Anxiety, depression, not otherwise specified. 8. Hypertensive heart disease. HOSPITAL COURSE: This patient presented with COPD exacerbation, some abdominal discomfort, felt to be acute bronchitis and patient is put on PPIs to which he responded rather well. Pulmonary status actually improved. The patient was seen by Dr. Rai Luz from cardiology and patient will follow up with Dr. Harris as an outpatient. The patient counseled against smoking. Breathing actually improved. EXAM: Lungs improved air entry. ABDOMEN: Soft, nontender. LDL is 110. 2D echo shows EF of 50-55%. DISCHARGE MEDICATIONS: 1. Zestril 40 mg p.o. b.i.d. 2. Coreg 25 mg p.o. b.i.d. 3. Lipitor 10 mg p.o. q.h.s. 4. Neurontin 300 mg p.o. t.i.d. 5. Percocet 10 1 tab q.6h p.r.n. 6. Ventolin HFA 1-2 puffs q.6h p.r.n. 7. Aspirin 81 mg p.o. daily. 8. Atrovent 2 puffs t.i.d. 9. Naproxen 250 mg p.o. b.i.d. 10.Nicotine 21 mg patch. 11.Prilosec 20 mg b.i.d. 12.Prednisone taper. Follow up with Dr. Love in [address] Lata Harris in 2 weeks. Diet soft bland. Copy to Dr. Lebron. MMJACOBOL / IJN: [id number] /
== END 2016-12-27 16:00 | disposition home or self-care (01) ==
LOC: EC 17:45 → 3OBS 20:30 → INTOOBSV 12-25 12:24 → OBSVTOIN 12-25 12:24 → UNDODISIN 12-25 14:50 → 4MS4W 12-25 15:26
PROVIDERS: ADMIT Hospitalist; ATTEND Hospitalist
DX: J44.0 Chronic obstructive pulmonary disease with (acute) lower respiratory infection (principal); J20.9 Acute bronchitis, unspecified; J44.1 Chronic obstructive pulmonary disease with (acute) exacerbation; I71.00 Dissection of unspecified site of aorta; F17.210 Nicotine dependence, cigarettes, uncomplicated; I11.9 Hypertensive heart disease without heart failure; F32.9 Major depressive disorder, single episode, unspecified; F41.9 Anxiety disorder, unspecified; E78.00 Pure hypercholesterolemia, unspecified; G89.29 Other chronic pain; M54.5 Low back pain; J01.90 Acute sinusitis, unspecified; J32.9 Chronic sinusitis, unspecified; K29.00 Acute gastritis without bleeding; Z79.899 Other long term (current) drug therapy; Z79.1 Long term (current) use of non-steroidal anti-inflammatories (NSAID); Z79.82 Long term (current) use of aspirin; Z83.3 Family history of diabetes mellitus; Z91.030 Bee allergy status; Z91.041 Radiographic dye allergy status; Z91.013 Allergy to seafood
CPT/HCPCS: 96376 ×4; 96366 ×2; 96372 ×2; 96375 ×2; 96361; 96365; 99285; 36415; 94640 ×6; 94760; 93005; 93306; 80061; 80053; 80048; 82550 ×2; 82553 ×2; 83690; 83735; 84484 ×2; 85025 ×2; 85049; 85610; 85730 ×2; 70220; 71020; G0378 ×5; J1644 ×2; J2920 ×2; J2270 ×2; J2405 ×4; J1650 ×2; J7512; C9113

== ENCOUNTER → 2017-02-19 | Outpatient (CLI) | payer OTHER ==
--- NOTE | 2017-02-19 15:56 | XR ---
EXAM TYPE: LUMBAR SPINE X RAY SERIES COMPARISON: NONE HISTORY: Low back pain TECHNIQUE: 4 views are submitted. FINDINGS: Alignment is anatomic. The pedicles are intact. The transverse processes are intact. There is no s pondylolisthesis. There is facet arthropathy. Moderate degenerative disc disease L4-5 and L5-S1 with mild changes at L3-4 and L2-L3. Multilevel facet arthropathy noted. IMPRESSION: 1. Multilevel degenerative disc disease and facet arthropathy. Correlate with MRI.
== END | disposition home or self-care (01) ==
LOC: RADXRMAIN 15:38
PROVIDERS: ATTEND Physical Medicine & Rehabilitation
DX: M51.16 Intervertebral disc disorders with radiculopathy, lumbar region (principal); M46.96 Unspecified inflammatory spondylopathy, lumbar region
CPT/HCPCS: 72110